=== PATIENT | male | born 1980 | race Caucasian/White ===

== ENCOUNTER 2024-07-13 18:36 | Emergency (ER) | payer SELFPAY ==
[2024-07-13 19:13] LABS: Specific Gravity > 1.030 (1.005-1.030); Urine Bilirubin NEGATIVE (Negative); Urine Blood Negative (Negative); Urine Clarity Clear (Clear); Urine Color Colorless (Yellow); Urine Glucose 4+ (Over) (Negative); Urine Ketones NEGATIVE (Negative); Urine Microscopic Reflex YN NO UMIC; Urine Nitrite NEGATIVE (Negative); Urine Protein NEGATIVE (Negative); Urine Urobilinogen 1+ (Normal); Urine pH 6.5 (5.0-7.0)
[2024-07-13] MEDS ORDERED: NA CHLORIDE 0.9% 1,000 ML ONE (20:03)
[2024-07-13 20:16] LABS: Absolute Basophils 0.1 K/uL (0-0.5); Absolute Eosinophils 0.4 K/uL (0-0.5); Absolute Lymphocytes (CBC) 1.7 K/uL (0.7-4.9); Absolute Monocytes 0.5 K/uL (0.1-1.3); Basophils % 0.8 % (0-1.3); Eosinophils % 5.6 % (0-4.4); Hemoglobin 15.8 g/dL (13.6-17.9); Lymphocytes % 25.4 % (15.3-44.8); MCH 31.4 pg (27.0-35.0); MCHC 35.1 g/dL (32.0-36.0); MCV 89.4 fL (80-100); MPV 9.5 fL (7.6-11.3); Monocytes % 7.1 % (3.3-12.3); Neutrophils % 61.1 % (41.7-73.7); Nucleated Red Blood Cells % 0.2 % (0-0); Platelets 145 thou/uL (152-406); RBC Red Blood Cell Count 5.03 M/uL (4.33-5.43); Red Cell Distribution Width 14.4 % (12.1-15.2)
[2024-07-13 20:29] LABS: Albumin 3.4 g/dL (3.4-5.0); Albumin/Globulin Ratio 0.7 (1.1-1.8); Anion Gap 8.1 mEq/L (5.0-15.0); Bilirubin Total 0.9 mg/dL (0.2-1.0); Globulin 4.6 g/dL (2.3-3.5)
[2024-07-13 20:32] LABS: Potassium 4.1 mEq/L (3.5-5.1)
--- NOTE | 2024-07-13 21:57 | ER ---
Nurse's Notes [facility] Name: Chad Christina Age: 43 yrs Sex: Male : 1980 Arrival Date: 07/13/2024 Time: 18:36 Bed 6 Private MD: Diagnosis: Type 2 diabetes mellitus with hyperglycemia Presentation: 07/13 18:44 Chief complaint: Patient states: extreme thirst, dry mouth, feeling off , urinating iw frequently , they checked his sugar at [facility] and it read 570. Coronavirus screen: At this time, the client does not indicate any symptoms associated with coronavirus-19. Ebola Screen: No symptoms or risks identified at this time. Initial Sepsis Screen: Does the patient meet any 2 criteria? No. Patient's initial sepsis screen is negative. Does the patient have a suspected source of infection? No. Patient's initial sepsis screen is negative. Risk Assessment: Do you want to hurt yourself or someone else? Patient reports no desire to harm self or others. Onset of symptoms. 18:44 Method Of Arrival: Ambulatory iw 18:44 Acuity: ANNIKA 3 iw Historical: - Allergies: 18:47 No Known Allergies; iw - Home Meds: 18:47 None [Active]; iw - PMHx: 18:47 None; iw - PSHx: 18:47 None; iw - Immunization history:: Adult Immunizations. - Infectious Disease History:: Denies. - Social history:: Smoking status: Patient reports the use of cigarette tobacco products, smokes one pack cigarettes per day. Screenin:11 [facility] ED Fall Risk Assessment (Adult) History of falling in the last 3 months, dd2 including since admission No falls in past 3 months (0 pts) Confusion or Disorientation No (0 pts) Intoxicated or Sedated No (0 pts) Impaired Gait No (0 pts) Mobility Assist Device Used No (0 pt) Altered Elimination No (0 pt) Score/Fall Risk Level 0 - 2 = Low Risk Oriented to surroundings, Maintained a safe environment, Educated pt \T\ family on fall prevention, incl call for assistance when getting out of bed, Assessed \T\ reinforced patient's understanding of fall precautions, Hourly rounding (assess needs \T\ fall precautionary measures) done. Abuse screen: Denies threats or abuse. Denies injuries from another. Nutritional screening: No deficits noted. Tuberculosis screening: No symptoms or risk factors identified. Assessment: 20:12 General: Appears in no apparent distress. Behavior is calm, cooperative, appropriate dd2 for age. Pain: Denies pain. Neuro: No deficits noted. Level of Consciousness is awake, alert, obeys commands, Oriented to person, place, time, situation, Appropriate for age. Cardiovascular: JVD is absent Patient's skin is warm and dry. Respiratory: Airway is patent Respiratory effort is even, unlabored, Respiratory pattern is regular, symmetrical. GI: Abdomen is non-distended, obese, Bowel sounds present X 4 quads. Abd is soft and non tender X 4 quads. : Reports urinary frequency. EENT: No deficits noted. No signs and/or symptoms were reported regarding the EENT system. Derm: No deficits noted. No signs and/or symptoms reported regarding the dermatologic system. Skin is healthy with good turgor, Skin is dry, Skin is normal, Skin temperature is warm. Musculoskeletal: No deficits noted. No signs and/or symptoms reported regarding the musculoskeletal system. Circulation, motion, and sensation intact. Range of motion: intact in all extremities. Vital Signs: 18:44 BP 143 / 96; Pulse 95; Resp 19; Temp 98.6; Pulse Ox 96% on R/A; Weight 152.86 kg; iw Height 6 ft. 0 in. ; 20:15 BP 136 / 84 (/lg); Pulse 85; Resp 17; Pulse Ox 95% on R/A; dd2 20:30 BP 115 / 97; Pulse 87; Resp 17; Pulse Ox 95% on R/A; dd2 20:45 BP 137 / 82; Pulse 88; Resp 18; Pulse Ox 94% on R/A; dd2 21:00 BP 125 / 71; Pulse 86; Resp 17; Pulse Ox 95% on R/A; dd2 22:23 BP 136 / 76; Pulse 83; Resp 16; Pulse Ox 100% on R/A; dd2 18:44 Body Mass Index 45.70 (152.86 kg, 182.88 cm) iw [place] Coma Score: 20:12 Eye Response: spontaneous(4). Motor Response: obeys commands(6). Verbal Response: dd2 oriented(5). Total: 15. ED Course: 18:39 Patient arrived in ED. im 18:45 Reji Acuna FNP-C [facility]. dr5 18:45 Ronaldo German MD is Attending Physician. dr5 18:46 Triage completed. iw 18:47 Arm band placed on. iw 19:53 Inserted saline lock: 20 gauge antecubital area, using aseptic technique. Blood ha1 collected. Flushed with 10 mL NS. 20:10 MIKAELA ACEVES, RN is Primary Nurse. dd2 20:11 No provider procedures requiring assistance completed. Initial lab(s) drawn, by ED dd2 staff, sent to lab. Patient maintains SpO2 saturation greater than 95% on room air. 20:12 Patient has correct armband on for positive identification. Bed in low position. Call dd2 light in reach. Side rails up X 1. Client placed on continuous cardiac and pulse oximetry monitoring. NIBP monitoring applied. Door closed. Noise minimized. Pillow given. Verbal reassurance given. 21:29 BETA HYDROXYBUTYRATE Sent. cm10 22:23 Provided Education on: D/C INSTRUCTIONS, MEDICATION EDUCATION . dd2 22:23 IV discontinued, intact, bleeding controlled, No redness/swelling at site. Pressure dd2 dressing applied. Administered Medications: 20:11 Drug: NS 0.9% IV 1000 ml IV at 1000 ml once; to be given as a bolus over 60 minutes dd2 Route: IV; Rate: 1000 ml; Site: right antecubital; 21:17 Follow up: IV Status: Completed infusion dd2 Medication: 20:12 VIS not applicable for this client. dd2 Outcome: 21:56 Discharge ordered by MD. dr5 22:23 Discharged to home ambulatory, dd2 22:23 Condition: stable 22:23 Discharge instructions given to patient, significant other, Instructed on discharge instructions, follow up and referral plans. medication usage, Demonstrated understanding of instructions, follow-up care, medications, Prescriptions given X 1, 22:25 Patient left the ED. dd2 Signatures: Melissa Nam RN RN iw Christina Nova RN RN ha1 Claire Mabry Clarissa RN RN cm10 MIKAELA ACEVES RN RN dd2 Reji Acuna FNP-Ata MANAGER POWER-Cdr5 Corrections: (The following items were deleted from the chart) 18:48 18:44 BP 143 / 96; Pulse 95bpm; Resp 19bpm; Pulse Ox 96% RA; Temp 98.6F; iw iw
--- NOTE | 2024-07-13 21:57 | EDPHYS ---
Physician Documentation [facility] Name: Chad Christina Age: 43 yrs Sex: Male : 1980 Arrival Date: 07/13/2024 Time: 18:36 Bed 6 Private MD: ED Physician Ronaldo German HPI: 07/13 18:45 This 43 yrs old Male presents to ER via Unassigned with complaints of High dr5 Blood Sugar. 18:45 Patient is a 43 year old male with no past medical history coming in with new onset dr5 excessive thirst and urination. Patient states he went to [facility] and had bgl checked and it was in 500s.. Historical: - Allergies: 18:47 No Known Allergies; iw - Home Meds: 18:47 None [Active]; iw - PMHx: 18:47 None; iw - PSHx: 18:47 None; iw - Immunization history:: Adult Immunizations. - Infectious Disease History:: Denies. - Social history:: Smoking status: Patient reports the use of cigarette tobacco products, smokes one pack cigarettes per day. ROS: 18:45 Constitutional: as per hpi dr5 Exam: 18:45 Constitutional: This is a well developed, well nourished patient who is awake, alert, dr5 and in no acute distress. 18:45 Head/Face: Normocephalic, atraumatic. Eyes: Pupils equal round and reactive to light, dr5 extra-ocular motions intact. Lids and lashes normal. Conjunctiva and sclera are non-icteric and not injected. Cornea within normal limits. Periorbital areas with no swelling, redness, or edema. ENT: Nares patent. No nasal discharge, no septal abnormalities noted. Tympanic membranes are normal and external auditory canals are clear. Oropharynx with no redness, swelling, or masses, exudates, or evidence of obstruction, uvula midline. Mucous membranes moist. Neck: Trachea midline, no thyromegaly or masses palpated, and no cervical lymphadenopathy. Supple, full range of motion without nuchal rigidity, or vertebral point tenderness. No Meningismus. Cardiovascular: Regular rate and rhythm with a normal S1 and S2. Normal PMI, no JVD. No pulse deficits. Respiratory: Lungs have equal breath sounds bilaterally, clear to auscultation. No rales, rhonchi or wheezes noted. No increased work of breathing, no retractions or nasal flaring. Back: No spinal tenderness. No costovertebral tenderness. Full range of motion. Skin: Warm, dry with normal turgor. Normal color with no rashes, no lesions, and no evidence of cellulitis. Neuro: Awake and alert, GCS 15, oriented to person, place, time, and situation. Cranial nerves II-XII grossly intact. Motor strength 5/5 in all extremities. Sensory grossly intact. Cerebellar exam normal. Normal gait. Vital Signs: 18:44 BP 143 / 96; Pulse 95; Resp 19; Temp 98.6; Pulse Ox 96% on R/A; Weight 152.86 kg; iw Height 6 ft. 0 in. ; 20:15 BP 136 / 84 (/lg); Pulse 85; Resp 17; Pulse Ox 95% on R/A; dd2 20:30 BP 115 / 97; Pulse 87; Resp 17; Pulse Ox 95% on R/A; dd2 20:45 BP 137 / 82; Pulse 88; Resp 18; Pulse Ox 94% on R/A; dd2 21:00 BP 125 / 71; Pulse 86; Resp 17; Pulse Ox 95% on R/A; dd2 22:23 BP 136 / 76; Pulse 83; Resp 16; Pulse Ox 100% on R/A; dd2 18:44 Body Mass Index 45.70 (152.86 kg, 182.88 cm) iw [place] Coma Score: 20:12 Eye Response: spontaneous(4). Motor Response: obeys commands(6). Verbal Response: dd2 oriented(5). Total: 15. MDM: 18:50 Medical Screening Exam initiated dr5 07/14 00:08 Differential diagnosis: Ren's syndrome, DKA, hyperglycemia. Data reviewed: vital dr5 signs, nurses notes, lab test result(s). 00:09 I considered the following discharge prescriptions or medication management in the [facility] emergency department Medications were administered in the Emergency Department. See MAR. Care significantly affected by the following Social Determinants of Health: Poor access to healthcare and/or lack of insurance, Poor access to transportation, Problems related to employment. Counseling: I had a detailed discussion with the patient and/or guardian regarding the historical points, exam findings, and any diagnostic results supporting the discharge/admit diagnosis, the presence of at least one elevated blood pressure reading (>120/80) during this emergency department visit, lab results, the need for outpatient follow up, for definitive care, a family practitioner, to return to the emergency department if symptoms worsen or persist or if there are any questions or concerns that arise at home. Medication response: Normal Saline. ED course: Patient not in DKA. Patient given NS and is feeling much better. at bedside made an appointment for patient to see a primary care physician on Monday07/15/24. Will start patient on Metformin. All questions answered and blood work was printed out and given to patient. Strict ER precautions given. Patient is agreeable to plan.. 07/13 18:50 Order name: CBC with Diff; Complete Time: 20:33 dr5 07/13 18:50 Order name: CMP; Complete Time: 20:36 dr5 07/13 18:50 Order name: Urinalysis w/ reflexes; Complete Time: 19:15 dr5 07/13 20:02 Order name: Glucose, Ancillary Testing; Complete Time: 20:33 EDMS 07/13 21:25 Order name: BETA HYDROXYBUTYRATE; Complete Time: 21:54 dr5 Administered Medications: 07/13 20:11 Drug: NS 0.9% IV 1000 ml IV at 1000 ml once; to be given as a bolus over 60 minutes dd2 Route: IV; Rate: 1000 ml; Site: right antecubital; 21:17 Follow up: IV Status: Completed infusion dd2 Disposition Summary: 07/13/24 21:56 Discharge Ordered Notes: Location: Home dr5 Condition: Stable dr5 Diagnosis - Type 2 diabetes mellitus with hyperglycemia dr5 Followup: dr5 - With: Emergency Department - When: As needed - Reason: Worsening of condition Followup: dr5 - With: Private Physician - When: 1 - 2 days - Reason: Recheck today's complaints, Continuance of care, Re-evaluation by your physician Discharge Instructions: - Discharge Summary Sheet dr5 - Type 2 Diabetes Mellitus, Diagnosis, Adult dr5 - Daily Diabetes Mellitus Record dr5 Forms: - Medication Reconciliation Form dr5 - Patient Portal Instructions dr5 - Leadership Thank You Letter dr5 Prescriptions: - Metformin 500 mg Oral tablet - take 1 tablet ORAL route 2 times per day for 30 days Then take 1 tablet with dr5 morning meals AND evening meals; 60 tablet; Refills: 0, Product Selection Permitted Addendum: 07/15/2024 09:07 Co-signature as Attending Physician, Ronaldo CONTRERAS I reviewed the patient's care r n provided by the Advanced Practice Provider and agree with the diagnosis and treatment plan. Signatures: Dispatcher [employer] Melissa Díaz, RN Ronaldo Márquez MD MD rn DAVIS, DIANA, RN RN dd2 Reji Acuna, KEY CUTTER-C KEY CUTTER-Cdr5 Corrections: (The following items were deleted from the chart) 07/13 18:50 18:50 CBC+H.LAB.BRZ ordered. EDMS EDMS 18:50 18:50 COMPREHENSIVE METABOLIC PANEL+C.LAB.BRZ ordered. EDMS EDMS 18:50 18:50 Urinalysis+U.LAB.BRZ ordered. EDMS EDMS
[2024-07-16 00:11] VITALS: TEMP 98.6
[2024-07-16 00:17] VITALS: BP 136/76; O2SAT 100
== END 2024-07-13 22:25 | disposition home or self-care (01) ==
LOC: ER 18:36
DX: E11.65 Type 2 diabetes mellitus with hyperglycemia (principal); F17.210 Nicotine dependence, cigarettes, uncomplicated
CPT/HCPCS: 36415; 80053; 81003; 82010; 82947; 85025; 96360; 99284; J7030